=== PATIENT | female | born 1975 | race Caucasian/White ===

== ENCOUNTER 2016-12-08 18:19 | Emergency (ER) | payer SELFPAY ==
[~2016-12-08] VITALS: Ht 175.3 cm; Wt 126.0 kg
[~2016-12-08 18:19] MED LIST: Z.0.NO CURRENT MEDS
[2016-12-08 18:31] VITALS: BP 169/94; PULSE 80; RESP 18; TEMP 99.2; O2SAT 98
[2016-12-08 18:59] VITALS: BP 169/94; PULSE 80; RESP 18; TEMP 99; O2SAT 98
[2016-12-08] MEDS ORDERED: GABA800T PO (19:41)
--- NOTE | 2016-12-08 19:44 | PD ---
HPI Chief Complaint: Medication Refill Request Time Seen by Provider: 19:36 Travel History International Travel<30 days: No Contact w/Intl Traveler<30days: No Traveled to known affect area: No History of Present Illness HPI HAS BEEN OUT OF NEURONTIN FOR PAST 2 DAYS FULLY, BUT HAS BEEN TAKING IT TWICE DAILY INSTEAD OF PRESCRIBED BECAUSE SHE WAS RUNNING OUT OF MEDICINE AND BEFORE THIS WEEK SHE WAS OUT OF A JOB. HERE REQUESTING REFILL TO HELP WITH HER FEET NEUROPATHY PFSH Past Medical History Diabetes: Yes Patient Takes Glucophage: Yes Diminished Hearing: No Medical other: Yes (RA, neuropathy) Tetanus Vaccination: < 5 Years Influenza Vaccination: Yes ?: Not Menopausal: Yes Past Surgical History Section: Yes Tonsillectomy: Yes Social History Alcohol Use: No Tobacco Use: No Substance Use: No Allergies-Medications (Allergen,Severity, Reaction): Coded Allergies: No Known Allergies (Verified Allergy, Unknown, 06/12/06) Reported Meds & Prescriptions Reported Meds & Active Scripts Active Reported No Current Meds (Miscellaneous Medication) Misc No Current Meds (Miscellaneous Medication) Misc Review of Systems Except as stated in HPI: all other systems reviewed are Neg (EXCEPT BURNING TO HER FEET ISAIAH WHICH SHE HAS HAD FOR YEARS DUE TO DM NEUROPATHY) Physical Exam Narrative GENERAL: SKIN: Warm and dry. HEAD: Atraumatic. Normocephalic. EYES: Pupils equal and round. No scleral icterus. No injection or drainage. ENT: No nasal bleeding or discharge. Mucous membranes pink and moist. NECK: Trachea midline. No JVD. CARDIOVASCULAR: Regular rate and rhythm. RESPIRATORY: No accessory muscle use. Clear to auscultation. Breath sounds equal bilaterally. GASTROINTESTINAL: Abdomen soft, non-tender, nondistended. MUSCULOSKELETAL: Extremities without clubbing, cyanosis, or edema. No obvious deformities. NEUROLOGICAL: Awake and alert. No obvious cranial nerve deficits. Motor grossly within normal limits. Five out of 5 muscle strength in the arms and legs. Normal speech. PSYCHIATRIC: Appropriate mood and affect; insight and judgment normal. Data Data Last Documented VS Vital Signs Date Time Temp Pulse Resp B/P (MAP) Pulse Ox O2 Delivery O2 Flow Rate FiO2 12/08/16 18:59 99.0 80 18 169/94 (119) 98 12/08/16 18:31 Room Air MDM Medical Decision Making Medical Screen Exam Complete: Yes Emergency Medical Condition: No Medical Record Reviewed: Yes Differential Diagnosis N/A Narrative Course MEDICATION REFILL AT URGENT [facility]ARE FOR LISINOPRIL AND METFORMIN WHICH IS WHAT SHE COULD AFFORD AT THE TIME, NOW THAT SHE STARTED NEW JOB SHE'S REQUESTING REFILL FOR NEURONTIN FOR HER DIABETIC NEUROPATHY Diagnosis Primary Impression: Medication refill Scripts Gabapentin (Gabapentin) 800 Mg Tab 800 MG PO QID, #180 TAB 0 Refills Prov: Vinod Fuentes MD 12/08/16 Disposition: 01 DISCHARGE HOME Condition: Stable Vinod Fuentes MD Dec 08, 2016 19:44
== END 2016-12-08 19:53 | disposition home or self-care (01) ==
LOC: PHEFT 18:19
DX: Z76.0 Encounter for issue of repeat prescription (principal); E11.9 Type 2 diabetes mellitus without complications
CPT/HCPCS: 99281

== ENCOUNTER 2017-07-18 10:39 | Emergency (ER) | payer SELFPAY ==
[~2017-07-18] VITALS: Ht 175.3 cm; Wt 124.0 kg
[~2017-07-18 10:39] MED LIST changes: +GABA800T PO
[2017-07-18 10:46] VITALS: BP 165/79; PULSE 99; RESP 16; TEMP 97.8; O2SAT 96
[2017-07-18] MEDS ORDERED: METF-382 PO (10:54)
[2017-07-18] MEDS ORDERED: METF1000 PO ×2 (10:54→10:57)
[2017-07-18] MEDS ORDERED: GABA400C5 PO (10:57)
--- NOTE | 2017-07-18 11:01 | PD ---
HPI Chief Complaint: Medication Refill Request Time Seen by Provider: 10:55 Travel History International Travel<30 days: No Contact w/Intl Traveler<30days: No Traveled to known affect area: No History of Present Illness HPI 41-year-old female presents emergency department requesting refills of gabapentin and metformin. States that she is in between insurance and recently received a denial letter for Medicaid and is due to have an appointment period Possibly in August. Patient says that she does check her blood sugar regularly. Says she works at the [employer] was unable to work today because of her neuropathy pain. PFSH Past Medical History Arthritis: Yes (RA) Diabetes: Yes Patient Takes Glucophage: Yes (07-18-17 0800) Diminished Hearing: No Neurologic: Yes (NEUROPATHY) Immunizations Current: Yes Tetanus Vaccination: < 5 Years Influenza Vaccination: No ?: Not LMP: ANKIT Menopausal: Yes Past Surgical History Section: Yes Tonsillectomy: Yes Social History Alcohol Use: No Tobacco Use: Yes (/) Substance Use: No Allergies-Medications (Allergen,Severity, Reaction): Coded Allergies: No Known Allergies (Verified Allergy, Unknown, 07/18/17) Reported Meds & Prescriptions Reported Meds & Active Scripts Active Gabapentin 400 Mg Cap 400 Cap PO QID Metformin (Metformin HCl) 1,000 Mg Tab 1,000 Mg PO BIDPC 10 Days Gabapentin 800 Mg Tab 800 Mg PO QID Reported Metformin (Metformin HCl) 1,000 Mg Tab 1,000 Mg PO BIDPC Review of Systems Except as stated in HPI: all other systems reviewed are Neg Physical Exam Narrative GENERAL: Well-nourished, well-developed patient. SKIN: Focused skin assessment warm/dry. HEAD: Normocephalic. EYES: No scleral icterus. No injection or drainage. NECK: Supple, trachea midline. No JVD or lymphadenopathy. CARDIOVASCULAR: Regular rate and rhythm without murmurs, gallops, or rubs. RESPIRATORY: Breath sounds equal bilaterally. No accessory muscle use. GASTROINTESTINAL: Abdomen soft, non-tender, nondistended. MUSCULOSKELETAL: No cyanosis, or edema. BACK: Nontender without obvious deformity. No CVA tenderness. Data Data Last Documented VS Vital Signs Date Time Temp Pulse Resp B/P (MAP) Pulse Ox O2 Delivery O2 Flow Rate FiO2 07/18/17 10:46 97.8 99 16 165/79 (107) 96 MDM Medical Decision Making Medical Screen Exam Complete: Yes Emergency Medical Condition: Yes Differential Diagnosis Medication refill, EMC no, diabetes neuropathy Narrative Course 41-year-old female presents emergency department requesting refills of gabapentin and metformin. States that she is in between insurance and recently received a denial letter for Medicaid and is due to have an appointment period Possibly in August. Patient says that she does check her blood sugar regularly. 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 She has no other complaints or requests today. Vital signs stable. Patient showed me her medication bottles and it did confirm that she was taking gabapentin 800 mg 4 times daily and Metformin 1000 mg twice daily. I discussed this case with my attending, Dr. Matias who agreed to a smaller dose of gabapentin and okayed the metformin refill. I have a very low suspicion that patient is drug-seeking today. Patient to follow-up with [email or web address] while she is in search of a primary care physician. She states understanding will comply. Diagnosis Primary Impression: Medication refill Referrals: [facility] Additional Instructions: Please give the patient the [email or web address] information. Follow-up with the primary care physician for further treatment and evaluation and for further refills. Scripts Gabapentin (Gabapentin) 400 Mg Cap 400 CAP PO QID for Pain Management, #28 CAP 0 Refills Prov: Jose Vela MD 07/18/17 Metformin (Metformin) 1,000 Mg Tab 1000 MG PO BIDPC for Blood Sugar Management for 10 Days, #28 TAB 0 Refills Prov: Jose Vela MD 07/18/17 Disposition: 01 DISCHARGE HOME Condition: Stable Nallely Hernandez Jul 18, 2017 11:01
== END 2017-07-18 11:07 | disposition home or self-care (01) ==
LOC: PHEFT 10:39
DX: Z76.0 Encounter for issue of repeat prescription (principal); M06.9 Rheumatoid arthritis, unspecified; E11.40 Type 2 diabetes mellitus with diabetic neuropathy, unspecified; F17.200 Nicotine dependence, unspecified, uncomplicated; Z79.899 Other long term (current) drug therapy
CPT/HCPCS: 99281